=== PATIENT | male | born 1975 | race Caucasian/White ===

== ENCOUNTER 2020-04-21 16:34 | Emergency (ER) | payer OTHER ==
[2020-04-21] MEDS ORDERED: Sodium Chloride 0.9% 1,000 ML IV ONE (16:53)
[2020-04-21] MEDS ORDERED: Ketorolac 30 MG/ML SDV IVPUSH ONE (16:53)
[2020-04-21] MEDS ORDERED: Ondansetron 4 MG/2 ML SDV IVPUSH ONE (16:54)
--- NOTE | 2020-04-21 17:08 | EDM.PDOC ---
ED HPI GENERAL MEDICAL PROBLEM - General Chief Complaint: Abdominal Pain Stated Complaint: RT SIDE PAIN Time Seen by Provider: 04/21/20 16:36 Source of Information: Reports: Patient History Limitations: Reports: No Limitations - History of Present Illness INITIAL COMMENTS - FREE TEXT/NARRATIVE: HISTORY AND PHYSICAL: History of present illness: Patient is a 45-year-old male who presents to the emergency room with complaints of right upper quadrant pain. Reports that the pain started approximately 2 to 3 hours prior to arrival which he described as a sharp tight sensation, "feels like something was going to pop". He also has nausea associated without vomiting. Patient denies any fever, chills, headache, change in vision, syncope or near syncope. Denies any chest pain, back pain, shortness of breath or cough. Denies any vomiting, diarrhea, constipation or dysuria. Has not noted any blood in urine or stool. Patient has been eating and drinking appropriately, but repo rts he hasn't eaten since yesterday. Upon arrival the patient's heart rate is int he 120's, reports "this always happens when I'm at the doctors". He reports that the only medical problem he has is asthma, takes a rescue inhaler as needed. Review of systems: As per history of present illness and below otherwise all systems reviewed and negative. Past medical history: As per history of present illness and as reviewed below otherwise noncontributory. Surgical history: As per history of present illness and as reviewed below otherwise noncontributory. Social history: See social history for further information Family history: As per history of present illness and as reviewed below otherwise noncontributory. Physical exam: General: Well developed and well nourished 45-year-old male. Alert and orientated x 3. Nontoxic in appearance and in no acute distress. Vital signs are stable and have been reviewed by me. Nursing notes were reviewed. HEENT: Atraumatic, normocephalic, pupils equal and reactive bilaterally, negative for conjunctival pallor or scleral icterus, mucous membranes moist, trachea midline. No drooling or trismus noted. No meningeal signs. No hot potato voice noted. Lungs: Clear to auscultation, breath sounds equal bilaterally, chest nontender. Normal work of breathing, no accessory muscles used. Heart: S1S2, tachycardia with regular rate and rhythm without overt murmur Abdomen: Soft, obese, nontender. No rebound tenderness. Negative Verdugo's sign. Negative for costovertebral tenderness. Pelvis: Stable nontender. Skin: Intact, warm, dry. No lesions or rashes noted. Hematologic: No petechiae or purpra. Mucosa appropriate color and normal nail bed color and refill. Extremities: Atraumatic, moves all extremities per self without difficulty or deficits, negative for cords or calf pain. Neurovascular unremarkable. Neuro: Awake, alert, oriented. Cranial nerves II through XII unremarkable. Cerebellum unremarkable. Motor and sensory unremarkable throughout. Exam nonfocal. Psychiatric: Mood and affect are appropriate. Normal thought process. Answering questions appropriately. Notes: *This patient was seen and evaluated during the 2019 SARS-CoV-2 novel coronavirus pandemic period. Community viral transmission is ongoing at time of this encounter and the emergency department is operating under pandemic response procedures. Within a few minutes of the patient being able to rest and get situated on the cot; his pulse dropped below 100 bpm. He denies any chest pain, SOB, or respiratory symptoms. He is agreeable to receiving some fluids and medications. Patient has a leukocytosis, will order a CT of the abdomen and pelvis. Vital signs improved after the IV fluids and medication. CT shows severe fatty infiltration of the liver with hepatomegaly. He reports after returning from CT that the "bubble sensation moved down and went away". I have talked with the patient about today's findings, in addition to providing specific details for plan of care. He states he is from [facility] and would prefer to follow up with this PCP if symptoms should return, worsen or new symptoms develop. Reassessment at the time of disposition demonstrates that the patient is in no acute distress. The patient is stable for discharge, counseling was provided and we discussed in great detail signs and symptoms that would prompt them to return to the Emergency Department. Medication, follow up and supportive care measures were reviewed and discussed. Voices understanding and is agreeable to plan of care. Denies any further questions or concerns at th is time. Diagnostics: CBC, CMP, UA, Lipase, CT abd/pelvis Therapeutics: IV fluids, Zofran, Toradol Prescription: Cipro (#10) Impression: Abdominal Pain Leukocytosis Plan: 1. Your lab work shows an elevated WBC (concern for infection) you also had moderate amount of blood in your urine. I believe you passed a kidney stone. Will treat with antibiotics. Make sure you monitor your symptoms closely and follow up as we discussed. 2. You can alternate Tylenol and ibuprofen as needed for pain and fever management. 3. If your symptoms should worsen, new symptoms develop or any of the signs and symptoms we discussed should arise please return to the emergency room or call 911 (if needed). Definitive disposition and diagnosis as appropriate pending reevaluation and review of above. Right Upper Abdomen Pain Score (Numeric/FACES): 4 - Related Data Allergies Allergy/AdvReac Type Severity Reaction Status Date / Time No Known Allergies Allergy Verified 04/21/20 16:44 Home Meds: Home Meds Albuterol [Proventil HFA] 1 dose INH ASDIRECTED PRN 04/21/20 [History] Past Medical History HEENT History: Reports: None Cardiovascular History: Reports: Other (See Below) Other Cardiovascular History: pt reports having a high heart rate Respiratory History: Reports: Asthma Gastrointestinal History: Reports: None Genitourinary History: Reports: None Musculoskeletal History: Reports: None Psychiatric History: Reports: None Endocrine/Metabolic History: Reports: None Oncologic (Cancer) History: Reports: None Dermatologic History: Reports: None - Infectious Disease History Infectious Disease History: Reports: None Social & Family History - Tobacco Use Tobacco Use Status *Q: Current Every Day Tobacco User Years of Tobacco use: 15 Packs/Tins Daily: 1 - Caffeine Use Caffeine Use: Reports: Coffee, Energy Drinks, Soda, Tea - Recreational Drug Use Recreational Drug Use: No ED ROS GENERAL - Review of Systems Review Of Systems: Comprehensive ROS is negative, except as noted in HPI. ED EXAM, GI/ABD - Physical Exam Exam: See Below (See dictation) Course - Vital Signs Last Recorded V/S: Last Vital Signs Temp 97 F 04/21/20 16:45 Pulse 94 04/21/20 19:08 Resp 18 04/21/20 19:08 BP 130/73 04/21/20 19:08 Pulse Ox 92 L 04/21/20 19:08 - Orders/Labs/Meds Labs: Laboratory Tests 04/21/20 04/21/20 04/21/20 Range/Units 16:50 16:50 18:54 WBC 15.35 H (4.0-11.0) K/uL RBC 5.98 H (4.50-5.90) M/uL Hgb 18.3 H (13.0-17.0) g/dL Hct 55.2 H (38.0-50.0) % MCV 92.3 (80.0-98.0) fL MCH 30.6 (27.0-32.0) pg MCHC 33.2 (31.0-37.0) g/dL RDW Std Deviation 42.8 (28.0-62.0) fl RDW Coeff of Moose 13 (11.0-15.0) % Plt Count 272 (150-400) K/uL MPV 11.40 (7.40-12.00) fL Neut % (Auto) 85.3 H (48.0-80.0) % Lymph % (Auto) 8.0 L (16.0-40.0) % [place] % (Auto) 6.3 (0.0-15.0) % Eos % (Auto) 0.1 (0.0-7.0) % Baso % (Auto) 0.3 (0.0-1.5) % Neut # (Auto) 13.1 H (1.4-5.7) K/uL Lymph # (Auto) 1.2 (0.6-2.4) K/uL [place] # (Auto) 1.0 H (0.0-0.8) K/uL Eos # (Auto) 0.0 (0.0-0.7) K/uL Baso # (Auto) 0.0 (0.0-0.1) K/uL Nucleated RBC % 0.0 /100WBC Nucleated RBCs # 0 K/uL Sodium 140 (136-148) mmol/L Potassium 4.2 (3.5-5.1) mmol/L Chloride 102 (98-107) mmol/L Carbon Dioxide 23.8 (21.0-32.0) mmol/L BUN 19 H (7.0-18.0) mg/dL Creatinine 1.4 H (0.8-1.3) mg/dL Est Cr Clr Drug Dosing 68.80 mL/min Estimated GFR (MDRD) 54.8 ml/min Glucose 131 H (74-106) mg/dL Calcium 9.2 (8.5-10.1) mg/dL Total Bilirubin 0.5 (0.2-1.0) mg/dL AST 31 (15-37) IU/L ALT 78 H (14-63) IU/L Alkaline Phosphatase 70 (46-116) U/L Total Protein 8.4 H (6.4-8.2) g/dL Albumin 4.6 (3.4-5.0) g/dL Globulin 3.8 (2.6-4.0) g/dL Albumin/Globulin Ratio 1.2 (0.9-1.6) Lipase 82 (73-393) U/L Urine Color YELLOW Urine Appearance SLT CLOUDY Urine pH 5.0 (5.0-8.0) Ur Specific [place] 1.020 (1.001-1.035) Urine Protein NEGATIVE (NEGATIVE) mg/dL Urine Glucose (UA) NEGATIVE (NEGATIVE) mg/dL Urine Ketones TRACE H (NEGATIVE) mg/dL Urine Occult Blood LARGE H (NEGATIVE) Urine Nitrite NEGATIVE (NEGATIVE) Urine Bilirubin NEGATIVE (NEGATIVE) Urine Urobilinogen 0.2 (<2.0) EU/dL Ur Leukocyte Esterase NEGATIVE (NEGATIVE) Urine RBC 10-15 (0-2/HPF) Urine WBC 0-2 (0-5/HPF) Ur Epithelial Cells RARE (NONE-FEW) Urine Bacteria FEW (NEGATIVE) Urine Mucus LIGHT (NONE-MOD) Meds: Medications Discontinued Medications Generic Name Dose Route Start Last Admin Trade Name Cornel PRN Reason Stop Dose Admin Ciprofloxacin 500 mg 04/21/20 19:10 Ciprofloxacin Hcl PO 04/21/20 19:11 ONETIME ONE Sodium Chloride 1,000 mls @ 999 mls/hr 04/21/20 16:53 04/21/20 16:57 Normal Saline IV 04/21/20 17:53 999 mls/hr .Bolus ONE Administration Iopamidol 100 ml 04/21/20 17:53 04/21/20 17:54 Isovue Multipack-370 (76%) IVPUSH 04/21/20 17:54 100 ml ONETIME ONE Administration Ketorolac Tromethamine 30 mg 04/21/20 16:53 04/21/20 16:57 Toradol IVPUSH 04/21/20 16:54 30 mg ONETIME ONE Administration Ondansetron HCl 4 mg 04/21/20 16:54 04/21/20 16:57 Zofran IVPUSH 01/10/21 16:55 4 mg ONETIME ONE Administration Departure - Departure Time of Disposition: 19:14 Disposition: Home, Self-Care 01 Clinical Impression: Abdominal pain, Leukocytosis, unspecified - Discharge Information Instructions: Abdominal Pain, Adult, [id number] Referrals: Rere Mckeon NP [Primary Care Provider] - Forms: ED Department Discharge Additional Instructions: The following information is given to patients seen in the emergency department who are being discharged to home. This information is to outline your options for follow-up care. We provide all patients seen in our emergency department with a follow-up referral. The need for follow-up, as well as the timing and circumstances, are variable depending upon the specifics of your emergency department visit. If you don't have a primary care physician on staff, we will provide you with a referral. We always advise you to contact your personal physician following an emergency department visit to inform them of the circumstance of the visit and for follow-up with them and/or the need for any referrals to a consulting specialist. The emergency department will also refer you to a specialist when appropriate. This referral assures that you have the opportunity for follow-up care with a specialist. All of these measure are taken in an effort to provide you with optimal care, which includes your follow-up. Under all circumstances we always encourage you to contact your private physician who remains a resource for coordinating your care. When calling for follow-up care, please make the office aware that this follow-up is from your recent emergency room visit. If for any reason you are refused follow-up, please contact the [facility] Emergency Department at and asked to speak to the emergency department charge nurse. [facility] [address] [place] [id number] [address] [address] Thank you for choosing the [facility] emergency department in [place] for your medical needs today. It was a pleasure caring for you. Today you were seen in the emergency department for abdominal pain. 1. Your lab work shows an elevated WBC (concern for infection) you also had moderate amount of blood in your urine. I believe you passed a kidney stone. Will treat with antibiotics. Make sure you monitor your symptoms closely and follow up as we discussed. 2. You can alternate Tylenol and ibuprofen as needed for pain and fever management. 3. If your symptoms should worsen, new symptoms develop or any of the signs and symptoms we discussed should arise please return to the emergency room or call 911 (if needed). Sepsis Event Note (ED) - Evaluation Sepsis Screening Result: No Definite Risk - Focused Exam Vital Signs: Vital Signs Temp Pulse Resp BP Pulse Ox 04/21/20 19:08 94 18 130/73 92 L 04/21/20 17:39 97 18 151/101 H 96 04/21/20 16:45 97 F 122 H 20 149/104 H 96
[2020-04-21 17:24] LABS: CARBON DIOXIDE,CO2 23.8 mmol/L (21.0-32.0); POTASSIUM,K 4.2 mmol/L (3.5-5.1)
[2020-04-21] MEDS ORDERED: Iopamidol 755 MG/ML 500 ML Multipack Bottle IVPUSH ONE (17:53)
--- NOTE | 2020-04-21 18:14 | CT ---
Clinical INDICATION: Right upper abdominal pain. TECHNIQUE: Axial intravenously infused CT cuts were performed from above the diaphragm to below the ischial tuberosities. 100 mL of Isovue-370 was injected via the right antecubital vein. FINDINGS: There is severe fatty infiltration of the liver with hepatomegaly. The portal vein is patent. The spleen is normal in size. The pancreas, adrenals and kidneys appear normal. The appendix is not inflamed. The colon and small bowel appear normal. There is no free intraperitoneal air or fluid. There are no enlarged retroperitoneal or mesenteric lymph nodes. The urinary bladder, seminal vesicles and prostate gland appear normal. There are no enlarged iliac or inguinal lymph nodes. There are no nodules or masses at the lung bases. No skeletal abnormality is identified. IMPRESSION: Severe fatty infiltration of the liver with hepatomegaly. Please note that all CT scans at this facility use dose modulation, iterative reconstruction, and/or weight-based dosing when appropriate to reduce radiation dose to as low as reasonably achievable. Dictated by Preet Helton MD @ Apr 21 2020 6:09PM Signed by Dr. Preet Helton @ Apr 21 2020 6:13PM
[2020-04-21] MEDS ORDERED: Ciprofloxacin 500 MG Tab PO ONE (19:10)
== END 2020-04-21 19:34 | disposition home or self-care (01) ==
LOC: MW.ED 16:34
DX: R10.11 Right upper quadrant pain (principal); D72.829 Elevated white blood cell count, unspecified; J45.909 Unspecified asthma, uncomplicated; F17.210 Nicotine dependence, cigarettes, uncomplicated
CPT/HCPCS: 36415; 74177; 80053; 81001; 83690; 85025; 96374; 96375; 99284; A9270; J1885; J2405; J7030; Q9967; 99283